=== PATIENT | male | born 1960 | race Caucasian/White ===

== ENCOUNTER 2016-11-18 05:45 | Emergency (ER) | payer OTHER ==
[~2016-11-18] VITALS: Ht 182.9 cm; Wt 102.1 kg
--- NOTE | 2016-11-18 05:52 | ED SKIN/ALLERGY COMPLAINT ---
History of Present Illness General Chief Complaint: Skin Rash/ Abcess Stated Complaint: SUNBURN TO UPPER BODY, BLISTERS\\ Source: patient Exam Limitations: no limitations Vital Signs & Intake/Output Vital Signs & Intake/Output Vital Signs Date Time Temp Pulse Resp B/P B/P Pulse O2 O2 Flow FiO2 Mean Ox Delivery Rate 11/18 0556 Room Air 11/18 0553 98.1 94 20 159/75 96 Room Air Allergies Coded Allergies: No Known Allergies (11/18/16) Reconcile Medications Oxycodone HCl/Acetaminophen (Percocet 5-325 MG Tablet) 5 MG-325 MG TABLET 1 TAB PO 4XDP PRN PAIN six...[id number] Silver Sulfadiazine (Silvadene) 1 % CREAM..G. 1 ZACHARIAH TOP BID sunburn apply to affected area(s) Triage Nurses Notes Reviewed? yes Onset: Gradual Duration: day(s): Timing: recent history Severity: moderate Location: torso Possible Factors: sun burn No Modifying Factors: none Associated Symptoms: redness, blisters HPI: 56-year-old gentleman history of myasthenia gravis on chronic steroids, presents with sunburn on his chest and from his shoulders. He states that 2 days ago he was out in the sun. He states that he was sitting for a few hours. There is a day he noted that he had a really bad sunburn. He states, "I haven't slept in 2 days. And then last night when he noticed the blisters, I came in." He has no fever chills shortness of breath. He is otherwise well and has no other concerns. Past History Travel History Traveled to [place] past 21 day No Medical History Any Pertinent Medical History? see below for history Musculoskeletal: myasthenia gravis Endocrine: diabetes Surgical History Surgical History: non-contributory Family History Hx Contributory? No Review of Systems Review of Systems Constitutional: Reports: no symptoms. EENTM: Reports: no symptoms. Respiratory: Reports: no symptoms. Cardiovascular: Reports: no symptoms. GI: Reports: no symptoms. Genitourinary: Reports: no symptoms. Musculoskeletal: Reports: no symptoms. Skin: Reports: no symptoms. Neurological/Psychological: Reports: no symptoms. Hematologic/Endocrine: Reports: no symptoms. Immunologic/Allergic: Reports: no symptoms. All Other Systems: Reviewed and Negative Physical Exam Physical Exam General Appearance: well developed/nourished, mild distress Head: atraumatic Eyes: Bilateral: PERRL, EOMI. Ears, Nose, Throat: normal pharynx, normal ENT inspection, hearing grossly normal Neck: normal inspection, supple Respiratory: normal breath sounds Cardiovascular: regular rate/rhythm Gastrointestinal: soft, non-tender Back: normal inspection Extremities: normal inspection, normal range of motion, no edema Neurologic/Psych: awake, alert, oriented x 3, normal mood/affect Skin: first-degree sunburn on the upper chest and abdomen. There are some blisters on his left and right shoulders, approximately 4 x 5 cm. No sign of infection. Lymphatic: no anterior cervical son Progress Differential Diagnosis: thermal burn versus sunburn versus other. First versus second degree. Plan of Care: Discussed at great length with the patient. Silvadene I believe would be a cooling and comforting salve. Patient states that he has not slept in 2 days. I wrote for a few pills of Percocet to help with the pain. Close follow-up advised. Departure Departure Disposition: HOME OR SELF CARE Condition: Stable Clinical Impression Primary Impression: Sunburn Referrals: ART KENNEDY MD (PCP/Family) Departure Forms: Customer Survey General Discharge Information Prescriptions: Current Visit Scripts Silver Sulfadiazine (Silvadene) 1 ZACHARIAH TOP BID #100 GM Ref 2 apply to affected area(s) Oxycodone HCl/Acetaminophen (Percocet 5-325 MG Tablet) 1 TAB PO 4XDP PRN PAIN #6 TAB six...[id number]
[2016-11-18 05:53] VITALS: BP 159/75
[2016-11-18] MEDS ORDERED: SILVADENE20 GM TOP (05:59)
[2016-11-18] MEDS ORDERED: PERCOCET 5-3251 EACH PO (05:59)
== END 2016-11-18 06:04 ==
LOC: ERH 05:45
DX: L55.0 Sunburn of first degree (principal)